=== PATIENT | male | born 1950 | race Caucasian/White ===

== ENCOUNTER 2018-07-29 15:39 | Inpatient (IN) | payer MEDICARE, OTHER, SELFPAY ==
[2018-07-29] VITALS (7 sets, daily range): BP systolic 119–161; BP diastolic 70–97; PULSE 64–87; RESP 14–20; TEMP 36.2–37.1; O2SAT 93–98; BMI 28.9; BMI 28.6
--- NOTE | 2018-07-29 | APP_PTH ---
PATIENT: KEIKO MICHEL LOC: MS2 U#:[id number] AGE/SX: 68/M ROOM: [id number] RE07/30/[address]: Dr. Aramis Gilbert MD : 1950 BED: 1 DIS: 07/31/2018 SPEC #: [id number] RECD: 07/30/18 12:17 STATUS: MARY RETammy #: [id number] BLAINE: 07/29/18 00:[address]: Aramis Gilbert DEPT: SURGICAL PATHOLOGY RECD BY: Yogi Salas ENTERED: 07/30/18 12:17 SP TYPE: APPENDIX OTHR DR: RODOLFO Da Silva Tissues: Appendix, NOS Procedures: Surgery Specimen Level III HEADER OPERATION: Laparoscopic appendectomy PRE-OP DIAGNOSIS: Acute appendicitis TISSUE SUBMITTED: Appendix MICROSCOPIC DIAGNOSIS Appendix: Acute ruptured appendicitis and periappendicitis. SJ:jamia 07/31/18 MICROSCOPIC DESCRIPTION Slides are reviewed. GROSS DESCRIPTION Received is one container labeled with the patient's name and designated appendix. The specimen consists of an appendix measuring 9.5 cm in length and up to 1 cm in diameter. 2 cm away from the proximal end, the appendix is disrupted most likely represents the site of perforation. The attached periappendiceal adipose tissue measures up to 2.5 cm in width. The mucosa is congested and hemorrhagic. The lumen contains hemorrhagic material. No fecalith is identified. 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 / ATA:jamia 07/30/18 TC:2 CPT: 90818
--- NOTE | 2018-07-29 15:59 | CT_ITS ---
STUDY: CT ABDOMEN AND PELVIS WITHOUT CONTRAST REASON FOR EXAM: Male, 68 years old. Lower abdominal pain RADIATION DOSAGE (If Supplied By Facility): CTDIvol = ( 13.75 ) mGy, DLP = ( 670.34 ) mGycm TECHNIQUE: Transaxial images were obtained from the dome of the diaphragm to the symphysis pubis without oral contrast, and without intravenous contrast. Sagittal and coronal images were reconstructed. Individualized dose optimization techniques were used for this CT. COMPARISON: None. FINDINGS: The visualized lung bases are unremarkable. The visualized portions of the heart are within normal limits. There is decreased attenuation of the liver consistent with steatosis. Normal gallbladder and extrahepatic biliary system. Normal spleen. Normal pancreas. Normal bilateral adrenal glands. Normal right kidney. Normal left kidney. Normal visualized stomach. Normal small intestine. Normal colon. There is a tubular, thick-walled appendix (>7mm), consistent with acute appendicitis. There is periappendiceal inflammation, findings best seen on coronal recon images 53 through 68. Normal abdominal aorta. Normal inferior vena cava. Normal retroperitoneum. Normal urinary bladder. Normal abdominal wall. Normal osseous structures. CT/Abdomen/Pelvis without Cont IMPRESSION: Abnormally thickened fluid-filled appendix with periappendiceal inflammation consistent with acute appendicitis. No perforation or abscess. Fatty liver Electronically Signed: David Mayo MD at 16:39 EDT , Service support ,
--- NOTE | 2018-07-29 16:00 | ED.VISSUMM ---
- ER Visit Summary Date of Service: 07/29/18 Chief Complaint: Abdominal pain History of Present Illness: The patient is a 68 M who goes to the [facility] and also sees Giovanni Burgos. Reports he has lower abdominal pain that began 3 days ago. Sick continuous aching pain that is 5 out of 10 at worst and through 10 currently. Is worsened by eating and relieved by remaining still. He has been nauseated and vomited once. No blood in his emesis. He reports his last bowel movement was 4-5 days ago. Typically goes 1-2 times per day. He denies any dysuria or frequency. He reports that he stopped taking psyllium approximately 2 weeks ago. Patient complains of subjective fever and chills. He denies any known history of diverticulosis. He reports that his last colonoscopy was approximately 3-5 years ago. Physical Examination: Vitals: Stable. Afebrile. General: Well-nourished and well-developed. Head: Normocephalic atraumatic. Neck: Supple, no lymphadenopathy. No JVD. Nontender. Cardiovascular: Regular rate and rhythm. No murmurs. Respiratory: No respiratory distress. Clear to auscultation bilaterally. Abdominal: Soft, mild tenderness palpation is diffuse over the lower abdomen, nondistended, normal bowel sounds. No guarding, rebound, or peritoneal signs. Back: Nontender. Extremities: Nontender, no edema. Skin: Normal color, no rash. Neurologic: Alert and oriented ?3. Cranial nerves II through XII are intact. Normal strength and sensation. Psych: Normal affect. Test Results: CBC is marked for a white count of 12.9, 7 neutrophils 71, lymphocytes 15, monocytes 14. Chem-7 is more for sodium [address] flank shows appendicitis without rupture or abscess. Emergency Department Course and Treatment: Patient had an IV placed. He was given a liter of normal saline. He is resting comfortably. He was given a dose of Zosyn IV. Treatment Plan: I discussed the patient his options of surgeon. I contacted Dr. Aramis Gilbert who will be in to see him. Disposition: Admitted in stable condition. Impression: 1. Appendicitis. This note was generated with [employer] dictation software. It may contain incorrect words, spelling, and punctuation that were not noted in review of the chart prior to signing ED Disposition - Plan for ED Patient: Chief Complaint: Abd Pain Referrals: Yinka Xiong PA [Primary Care Provider] -
[2018-07-29] MEDS: 0.9% Normal Saline 1,000 ML 1000 ML IV (16:14)
[2018-07-29 16:32] LABS: Anion Gap 9 (5-15); BUN 17 mg/dL (7-18); BUN/Creat Ratio 12.6 RATIO (10-20); Calcium,Total 8.5 mg/dL (8.5-10.1); Chloride 98 mmol/L (98-107); Creatinine, Serum 1.35 mg/dL (0.70-1.30); EST Glomerular Filtration Rate 56 mL/min (>60); Est Glom Filt Rate - Afr Amer 67 mL/min (>60); Estimated Creatinine Clearance 51.64 ml/min; Glucose 103 mg/dL (74-106); Potassium 3.6 mmol/L (3.5-5.1); Sodium Level 133 mmol/L (136-145)
[2018-07-29 16:33] LABS: Absolute Lymphocyte Count 1.97 X10^3/ul (0.83-4.51); Absolute Neutrophil Count 9.1 X10^3/uL (2.0-7.7); Basophil# 0.02 X10^3/uL; Basophil% 0.2 % (0-1); Eosinophil# 0.02 X10^3/uL; Eosinophils% 0.2 % (0-5); Hematocrit 45.8 % (40-54); Hemoglobin 15.8 g/dl (13.0-16.5); Lymphocyte # 1.97 X10^3/ul (4.0); Lymphocyte % 15.3 % (19-41); Mean Corp Hgb Conc 34.5 g/gl (32-36); Mean Corpuscular Hgb 31.2 pg (27.0-32.0); Mean Corpuscular Volume 90.5 fL (80-94); Monocyte# 1.76 X10^3/uL; Monocyte% 13.6 % (0-10); Neutrophil # 9.12 X10^3/uL (2.7-7.7); Neutrophil % 70.5 % (47-70); Platelet Count 159 K/mm3 (150-450); RBC Distribution Width CV 12.2 % (11.6-14.6); RBC Distribution Width SD 40.2 fl (35.1-43.9); Red Blood Count 5.06 M/mm3 (4.6-6.2); White Blood Count 12.9 K/mm3 (4.4-11.0)
[2018-07-29 16:35] LABS: Differential Indicated SCAN CRITERIA MET; POSITIVE COUNT NO; POSITIVE DIFFERENTIAL YES; POSITIVE MORPHOLOGY NO
[2018-07-29 16:59] LABS: Platelet Estimate A (ADEQ); Red Cell Morphology NORM C+C NORMAL (NORM C&C)
--- NOTE | 2018-07-29 17:12 | PCM.HP.STD ---
Problem List (1) Acute appendicitis Status: Acute Qualifiers: Acute appendicitis type: unspecified acute appendicitis type Qualified Code(s): K35.80 - Unspecified acute appendicitis (2) Chronic gastritis Status: Acute Qualifiers: Gastritis type: unspecified gastritis History of Present Illness Date of Admission: 07/29/18 The patient is a 68 year old M who presents to the emergency room with a 3-day history of abdominal pain. His symptoms started off with nausea vomiting and lower abdominal pain. He has not had a bowel movement for 4-5 days. He had a temperature up to 100. He states he was seen by urgent care yesterday and was told he had gastroenteritis. Because of worsening pain he presented to the emergency room. Laboratory demonstrates a white count of 12.9. CT scan was obtained demonstrating abnormal appendix with periappendiceal inflammation consistent with acute appendicitis. I have been consulted to assist with care with patient request Past Medical History Allergies No Known Allergies Allergy (Verified 07/29/18 15:41) Home Medications: Ambulatory Orders Medication Instructions Recorded Gerd Medication 07/29/18 Surgical History: arthroscopy, knee, tonsillectomy, - - History of esophagogastroduodenoscopy x3. History of colonoscopy x2. Smoking Status: Never smoker Alcohol: Occasional Review of Systems Constitutional: Reports: Anorexia, Chills, Fever, Night Sweats Eyes: Denies: Blurred vision HEENT: Denies: Difficulty Hearing Cardiovascular: Denies: Chest Pain, Claudication Respiratory: Denies: Cough Gastrointestinal: Reports: Abdominal Pain, Constipation, Nausea, Vomiting Genitourinary: Denies: Dysuria Skin: Denies: Dryness Neurological: Denies: Balance problems Endocrine: Denies: Change in Body Habitus VTE Information - Inpt Only VTE Present on Admission: No Patient Problems: Active and Suspected Problems Acute appendicitis (Acute) Chronic gastritis (Acute) - Physical Exam General: Alert, Oriented x3, Cooperative, No apparent distress HEENT: Atraumatic Oral: Moist Mucosa Neck: Supple Lungs: Clear to auscultation Cardiovascular: Regular rate, Regular Rhythm Abdomen: Bowel Sounds Present, - - Focally tender palpation right lower quadrant with guarding and rebound Extremities: No Calf Tenderness Skin: No rashes Neurological: Cranial nerves II-XII grossly intact Psych/Mental Status: Normal Affect Vital Signs Temp Pulse Resp BP Pulse Ox 98.7 F 79 16 161/85 H 96 07/29/18 15:43 07/29/18 17:03 07/29/18 17:03 07/29/18 17:03 07/29/18 17:03 Oxygen Delivery Method Room Air Weight: 195 lb 12.328 oz Body Mass Index (BMI) 28.9 Laboratory Tests Past 24 Hrs 07/29/18 07/29/18 16:10 16:10 WBC 12.9 H RBC 5.06 Hgb 15.8 Hct 45.8 MCV 90.5 MCH 31.2 MCHC 34.5 RDW 12.2 RDW Differential 40.2 Plt Count 159 MPV 10.0 Immature Gran % (Auto) 0.200 Neut % (Auto) 70.5 H Lymph % (Auto) 15.3 L Edmunds % (Auto) 13.6 H Eos % (Auto) 0.2 Baso % (Auto) 0.2 Absolute Neuts (auto) 9.1 H Absolute Lymphs (auto) 1.97 Total Counted Not Reportable Differential Comment Diff Path Review May foll Platelet Estimate A RBC Morphology NORM C+C Sodium 133 L Potassium 3.6 Chloride 98 Carbon Dioxide 26.0 Anion Gap 9 BUN 17 Creatinine 1.35 H Estim Creat Clear Calc 51.64 Est GFR (MDRD) Af Amer 67 Est GFR (MDRD) Non-Af 56 L BUN/Creatinine Ratio 12.6 Glucose 103 Calcium 8.5 Assessment/Plan All Active Problems Acute appendicitis (Acute) Chronic gastritis (Acute) The patient's presentation and clinical exam finding laboratory and imaging all consistent with 3-day progressive acute appendicitis. He has a significant amount of fat stranding on CT suggesting a more advanced process. I am offering him a laparoscopic appendectomy with possible conversion to an open approach if indicated. We will initiate him on IV Zosyn therapy. The patient complains of a 4-5-day history of constipation consistent with preoperative ileus. He is distended. He has had an opportunity to ask and have questions answered. We will proceed as or timing permits. Aramis Gilbert M.D., F.A.C.S.
--- NOTE | 2018-07-29 19:19 | DCINST_ITS ---
Discharge Diet: Light diet - advance as tolerated - if you have questions about your diet instructions, please talk to you doctor. Discharge Activity: May Not Drive - for 1 week or while taking narcotic pain medicine. May shower in (days): 1 Lifting Restrictions: 10 pounds Call your doctor if your incision/area has: Continuous Slow Oozing, Sudden Increased Bleeding, Increased Pain/ Swelling, Increased Redness, Foul Smelling Discharge Call your doctor if you observe: Fever of 101 or Higher Suture Line Care: Avoid Pulling/Pushing, Avoid Pinching/Bending Additional Dressing/Incision Instructions:: Change or remove dressing in 4 days. Leave steri-strips in place for 1 week. Allergies/Adverse Reactions: Allergies No Known Allergies Allergy (Verified 07/29/18 15:41) Medications to take at Discharge Ondansetron HCl [Zofran] 4 mg PO Q8H PRN PRN 07/29/18 Primary Care Physician: Yinka Xiong PA [Primary Care Provider] - Test Results: Test results from this visit will be discussed in further detail at your follow- up appointment, if applicable. Please Follow Up With: Aramis Gilbert MD - [phone] When: Call to make an appointment to be seen in about 10 days.
--- NOTE | 2018-07-29 19:19 | PCM.OPRPT ---
Problem List (1) Acute appendicitis Status: Acute Qualifiers: Acute appendicitis type: unspecified acute appendicitis type Qualified Code(s): K35.80 - Unspecified acute appendicitis (2) Chronic gastritis Status: Acute Qualifiers: Gastritis type: unspecified gastritis Report of Operation Date of Procedure: 07/29/18 Pre-Operative Diagnosis: Acute appendicitis with ileus Post-Operative Diagnosis: Acute gangrenous perforated appendicitis with ileus Surgery/Procedure Performed:: Laparoscopic appendectomy Description of Surgical Findings:: Timeout and informed consent was obtained. 68-year-old gent was taken the operative room. He was placed on the table. He underwent general endotracheal intubation anesthesia. Zosyn 4.5 g had been initiated therapeutic preoperatively the abdomen sterilely prepped and draped. 0.5% Marcaine was used as local anesthetic. Total 25 cc was used. A infraumbilical midline incision was created at the umbilicus sharp dissection carried down to Bey tissue holding sutures of 0 Vicryl placed varies needle inserted saline drop test performed the abdomen was insufflated with CO2 to a pressure of 10 mmHg pressure, trocar inserted 10 lap scope inserted over the joint trocar injuries under direct visitation five-minute ports were placed suprapubically in the low mid abdomen inspection revealed a densely adherent appendix in the right lower quadrant with partial retrocecal component. The lap scopic appendectomy was technically extraordinarily challenging due to the absolute dense adherence of the appendix to the retroperitoneum. I attempted to elevate the appendix was not successful I had to incise the peritoneum along the lateral aspect of the cecum to get retrocecal to assist with elevation. Were needed hemostasis obtained with Hem-o-kenya clips. Blunt dissection was performed. Finally the origin of the appendix with the cecum could be identified and a 45 mm standard height stapler was used to transect the appendix flush with the cecum. Hemoclips were additionally used to secure the mesoappendix. The appendix was it is of note that during the initial part of this dissection there was evidence of gangrenous change of the appendix with purulent discharge as soon as the appendix was freed from a portion of the retroperitoneum this material was aspirated and sent for stat Gram stain culture and sensitivity. Eventually the appendix could completely be free from the mesoappendix was placed in retrieval bag. The inflammatory phlegmon pocket was carefully irrigated and aspirated free. Hemostasis was intact. The staple line was intact. The appendix was placed in a retrieval bag. A 15 round DAVID drain was placed to the pelvis into the periappendiceal area. It was connected to the skin with interrupted 3-0 nylon. Was connected to closed bulb suction. The appendix was removed at the umbilicus both fascia and skin enlargement was required due to the amount of inflammatory reaction. The abdomen was then allowed to deflate of the CO2. The fascial defect was approximated with interrupted 0 Vicryl figure 8 suture. Skin edges proximate up to 4 Monocryl subdermal stitches. Steri-Strips Telfa and OpSite dressings applied. Sponge and instrument and needle counts were reported the surgeon be correct. Blood loss was minimal. Specimens include the appendix. Drains 15 round DAVID. Blood loss minimal. He will be admitted for ongoing care of his perforated appendicitis with preoperative ileus. Aramis Gilbert M.D., F.A.C.S. Anesthesiologist: Mango Leos
[2018-07-29] MEDS: Lactated Ringers 1,000 ML 70 ML IV (21:08)
[2018-07-29] MEDS: Morphine 2 MG/ML Syringe IV (21:08)
[2018-07-29] MEDS: Piperacil/Tazobactam 3.375 GM/50 ML ML IV (22:07)
[2018-07-30] MEDS: Acetaminophen 325 MG Tablet 650 MG PO (00:16)
[2018-07-30 00:24] VITALS: BMI 28.6
[2018-07-30 00:25] VITALS: BP 111/54; PULSE 90; RESP 18; TEMP 37.9; O2SAT 92
[2018-07-30 04:00] VITALS: BP 111/53; PULSE 90; RESP 18; TEMP 36.4; O2SAT 92
[2018-07-30] MEDS: Piperacil/Tazobactam 3.375 GM/50 ML ML IV ×3 (05:42→22:33)
--- NOTE | 2018-07-30 05:47 | PN.SURG_ITS ---
Subjective: Pt comfortable No flatus, no nausea - Physical Exam Abdomen: Soft, Bowel Sounds Not Present, Distended - DAVID sersosanguinous and small amount Vital Signs Temp Pulse Resp BP Pulse Ox 97.6 F L 90 18 111/53 L 92 07/30/18 04:00 07/30/18 04:00 07/30/18 04:00 07/30/18 04:00 07/30/18 04:00 Oxygen Delivery Method Room Air Weight: 194 lb Body Mass Index (BMI) 28.6 Intake and Output for Last 24 Hours 07/28/18 07/29/18 07/30/18 23:59 23:59 23:59 Intake Total 328 / 328 498 / 498 Output Total 55 / 55 125 / 125 Balance 273 / 273 373 / 373 Laboratory Tests Past 24 Hrs 07/29/18 07/29/18 16:10 16:10 WBC 12.9 H RBC 5.06 Hgb 15.8 Hct 45.8 MCV 90.5 MCH 31.2 MCHC 34.5 RDW 12.2 RDW Differential 40.2 Plt Count 159 MPV 10.0 Immature Gran % (Auto) 0.200 Neut % (Auto) 70.5 H Lymph % (Auto) 15.3 L Crowley % (Auto) 13.6 H Eos % (Auto) 0.2 Baso % (Auto) 0.2 Absolute Neuts (auto) 9.1 H Absolute Lymphs (auto) 1.97 Total Counted Not Reportable Differential Comment Diff Path Review May foll Platelet Estimate A RBC Morphology NORM C+C Sodium 133 L Potassium 3.6 Chloride 98 Carbon Dioxide 26.0 Anion Gap 9 BUN 17 Creatinine 1.35 H Estim Creat Clear Calc 51.64 Est GFR (MDRD) Af Amer 67 Est GFR (MDRD) Non-Af 56 L BUN/Creatinine Ratio 12.6 Glucose 103 Calcium 8.5 Medical Necessity - Tobacco Use Smoking Status: Never smoker Assessment/Plan All Active Problems Acute appendicitis (Acute) Chronic gastritis (Acute) Check labs Pt needs to mobilize. Preop ileus persists Will hold on clears until recheck later today
[2018-07-30 06:34] LABS: Absolute Lymphocyte Count 1.61 X10^3/ul (0.83-4.51); Absolute Neutrophil Count 8.6 X10^3/uL (2.0-7.7); Basophil# 0.02 X10^3/uL; Basophil% 0.2 % (0-1); Hematocrit 42.4 % (40-54); Hemoglobin 14.5 g/dl (13.0-16.5); Lymphocyte # 1.61 X10^3/ul (4.0); Lymphocyte % 13.8 % (19-41); Mean Corp Hgb Conc 34.2 g/gl (32-36); Mean Corpuscular Volume 90.6 fL (80-94); Mean Platelet Vol. 10.9 fl (6.2-12.0); Monocyte# 1.43 X10^3/uL; Monocyte% 12.3 % (0-10); Neutrophil # 8.57 X10^3/uL (2.7-7.7); Neutrophil % 73.6 % (47-70); Platelet Count 172 K/mm3 (150-450); RBC Distribution Width CV 12.1 % (11.6-14.6); RBC Distribution Width SD 39.8 fl (35.1-43.9); Red Blood Count 4.68 M/mm3 (4.6-6.2); White Blood Count 11.6 K/mm3 (4.4-11.0)
[2018-07-30 06:37] LABS: POSITIVE COUNT NO; POSITIVE DIFFERENTIAL NO; POSITIVE MORPHOLOGY NO
[2018-07-30 08:00] VITALS: BP 115/75; PULSE 80; RESP 18; TEMP 36.7; O2SAT 97
[2018-07-30] MEDS: Enoxaparin 40 MG/0.4 ML Syringe SC (11:11)
[2018-07-30] MEDS: Lactated Ringers 1,000 ML 70 ML IV (11:11)
[2018-07-30] MEDS: 0.9% NaCl Peripheral Flush Adult/Peds IV (12:24)
[2018-07-30] MEDS: Ondansetron 4 MG/2 ML Vial IV (12:24)
--- NOTE | 2018-07-30 13:00 | CASEMGMT ---
KIMBERLY PANDYA INITIAL REVIEW ASSESSMENT D/C PLAN: Face to Face with patient for initial transition planning/care coordination assessment. KIMBERLY PANDYA introduced self and role at [facility]. Care providers, pharmacy, and demographics verified. PCP: RODOLFO Bright. States has only seen him x 1 d/t was wanting to get set up w/PCP. Otherwise goes to [facility] in [place]--sees Dr Gomes there and nurse is Zac. States he goes to Dr Gomes 2 x's/year. *Call placed to [facility] in [place] @ [phone]. Pt is on Team 3 @ [facility]. KIMBERLY Frank, for Dr Gomes. (Extenstion [id number]). Zac notified that pt is @ [facility]. Zac asked for d/c instructions to be faxed to him @ [phone] when pt is discharged. Zac also states that pt has an appt with Dr Gomes on August 04 @ 0459. Pt states he is aware of this, but states he is supposed to have labs drawn prior to that appt and is not sure what labs he needs. Call placed back to Zac to inquire what labs were needed. Awaiting response. Pt also states he does not remember all of the medication he takes. Asked for medication list to be faxed to KIMBERLY PANDYA from [facility]. Awaiting response. Preferred Pharmacy: [facility] [place]. States if they do not have the medication available or if he needs a prescription right away, he goes to [facility] in [place]. Pt will need a printed Script [facility]. Insurance: [facility] A [facility], [employer] Prescription Benefit: [facility] prescription coverage if gets at [facility] Living Will/HPOA: States does not have LW or HPOA but would like some more information on it and would like to talk to about it. consult made with Nehal CONLEY: Manda Bricenok, sister Living Arrangements: Lives alone in a one-story home. States there are no steps to enter. Pt states is independent with all ADL's. States his sister is able to help him if needed. Transportation: Pt still drives. Sister able to help. DME: Has rails/grab bars, othewise, denies using any DME and denies needs. HHC/SNF: Pt states has never used HHC or been to a SNF and denies needs for either. Pt's plans on D/C: Wishes to return home. CM to follow for any further discharge planning needs that may arise. Zofia MOJICAN RN CM
--- NOTE | 2018-07-30 13:26 | CASEMGMT ---
SW received referral from for [employer] Direct[employer]. SW met w/pt, he did not want to complete the forms at present but did want to review them. SW reviewed the forms w/the pt and gave him the number for the SW to department to call, should he want to complete them after discharge. SW explained to pt that if he would like to complete them after discharge to call and a SW would be able to make an appointment to assist pt in completing the forms. PERLA Powell, SPACE ENGINEER
--- NOTE | 2018-07-30 13:30 | CASEMGMT ---
KIMBERLY PANDYA NOTE: Reviewed [place] Declination of Transfer form. Pt declines tranfer to a [facility] and signed form. Copy of form given to pt and original placed on chart. Form faxed to [facility] @ [phone] along with H/P and demographic sheet. Fax confirmation received that faxes was delivered. Zofia MAJANO RN CM
[2018-07-30 13:43] LABS: Pathologist Review Reviewed
[2018-07-30 13:49] VITALS: BP 125/78; PULSE 84; RESP 18; TEMP 37.2; O2SAT 97
--- NOTE | 2018-07-30 16:59 | CHAPLAIN ---
Type of Pastoral Visit _x__ Initial Visit ___ Follow-up Visit ___ On-call Visit ___ General Patient Visit ___ Spiritual Assessment ___ Family Conference ___ Bereavement ___ Rapid Response ___ Code Blue ___ Other (describe below) Pastoral Care Referral From _x__ Patient ___ Family ___ Nurse ___ Physician ___ Remote Medical Coder ___ Transition Program Manager ___ Other (describe below) Sacrament/Intervention _x__ Active listening ___ Anointing ___ Yazdanism ___ Bereavement ___ Communion _x__ Lesli exploration ___ ___ Life review _x__ Prayer ___ Reconciliation ___ Sacrament of Sick _x__ Supportive presence ___ Wedding ___ Other (describe below) Pastoral Comments 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
[2018-07-30 20:23] VITALS: BP 137/79; PULSE 89; RESP 18; TEMP 36.9; O2SAT 96
[2018-07-31] MEDS: Lactated Ringers 1,000 ML 70 ML IV (01:04)
[2018-07-31 01:44] VITALS: BP 122/69; PULSE 89; RESP 16; TEMP 36.8; O2SAT 93
[2018-07-31] MEDS: Acetaminophen 325 MG Tablet 650 MG PO (04:57)
--- NOTE | 2018-07-31 05:19 | NURSING ---
Dr. Gilbert in & pulled patient's DAVID drain at bedside.
--- NOTE | 2018-07-31 05:25 | PN.SURG_ITS ---
Subjective: Flatus, no stool, no nausea - Physical Exam Lungs: Clear to auscultation Abdomen: Bowel Sounds Present, Soft Vital Signs Temp Pulse Resp BP Pulse Ox 98.2 F 89 16 122/69 H 93 07/31/18 01:44 07/31/18 01:44 07/31/18 01:44 07/31/18 01:44 07/31/18 01:44 Oxygen Delivery Method Room Air Weight: 194 lb 0.003 oz Body Mass Index (BMI) 28.6 Intake and Output for Last 24 Hours 07/29/18 07/30/18 07/31/18 23:59 23:59 23:59 Intake Total 328 / 328 2096.9 / 2096.9 Output Total 55 / 55 165 / 165 Balance 273 / 273 1931.9 / 1931.9 Microbiology Past 72 Hours 07/29/18 18:25 Gram Stain - Final Abs - Abdominal Wound Culture - Preliminary Laboratory Tests Past 24 Hrs 07/29/18 07/30/18 16:10 05:50 WBC 11.6 H RBC 4.68 Hgb 14.5 Hct 42.4 MCV 90.6 MCH 31.0 MCHC 34.2 RDW 12.1 RDW Differential 39.8 Plt Count 172 MPV 10.9 Immature Gran % (Auto) 0.100 Neut % (Auto) 73.6 H Lymph % (Auto) 13.8 L [place] % (Auto) 12.3 H Eos % (Auto) 0.0 Baso % (Auto) 0.2 Absolute Neuts (auto) 8.6 H Absolute Lymphs (auto) 1.61 Total Counted Not Reportable Diff Path Review Reviewed Medical Necessity - Tobacco Use Smoking Status: Never smoker Assessment/Plan All Active Problems Acute appendicitis (Acute) Chronic gastritis (Acute) DAVID removed Await cultures Planned discharge later today
[2018-07-31 05:41] LABS: Absolute Lymphocyte Count 1.63 X10^3/ul (0.83-4.51); Absolute Neutrophil Count 4.6 X10^3/uL (2.0-7.7); Basophil# 0.02 X10^3/uL; Basophil% 0.3 % (0-1); Eosinophil# 0.08 X10^3/uL; Eosinophils% 1.1 % (0-5); Hematocrit 36.8 % (40-54); Hemoglobin 12.7 g/dl (13.0-16.5); Lymphocyte # 1.63 X10^3/ul (4.0); Lymphocyte % 22.3 % (19-41); Mean Corp Hgb Conc 34.5 g/gl (32-36); Mean Corpuscular Hgb 31.2 pg (27.0-32.0); Mean Corpuscular Volume 90.4 fL (80-94); Mean Platelet Vol. 10.1 fl (6.2-12.0); Monocyte# 0.97 X10^3/uL; Monocyte% 13.3 % (0-10); Neutrophil % 62.7 % (47-70); Platelet Count 157 K/mm3 (150-450); RBC Distribution Width CV 11.7 % (11.6-14.6); RBC Distribution Width SD 38.2 fl (35.1-43.9); Red Blood Count 4.07 M/mm3 (4.6-6.2); White Blood Count 7.3 K/mm3 (4.4-11.0)
[2018-07-31] MEDS: Polyethylene Glycol 3350 17 GM PACKET 34 GM PO (05:42)
[2018-07-31] MEDS: Piperacil/Tazobactam 3.375 GM/50 ML ML IV ×2 (05:43→14:07)
[2018-07-31] MEDS: Bisacodyl 5 MG Tablet 10 MG PO (05:44)
[2018-07-31] MEDS: Enoxaparin 40 MG/0.4 ML Syringe SC (05:44)
[2018-07-31 05:45] LABS: POSITIVE COUNT NO; POSITIVE DIFFERENTIAL NO; POSITIVE MORPHOLOGY NO
[2018-07-31 06:10] LABS: Anion Gap 10 (5-15); BUN 17 mg/dL (7-18); BUN/Creat Ratio 15.2 RATIO (10-20); Calcium,Total 7.7 mg/dL (8.5-10.1); Chloride 102 mmol/L (98-107); Creatinine, Serum 1.12 mg/dL (0.70-1.30); EST Glomerular Filtration Rate 69 mL/min (>60); Est Glom Filt Rate - Afr Amer 84 mL/min (>60); Estimated Creatinine Clearance 62.25 ml/min; Glucose 87 mg/dL (74-106); Potassium 3.6 mmol/L (3.5-5.1); Sodium Level 138 mmol/L (136-145)
[2018-07-31 07:55] VITALS: BP 131/82; PULSE 85; RESP 18; TEMP 36.6; O2SAT 97
--- NOTE | 2018-07-31 11:15 | CASEMGMT ---
KIMBERLY PANDYA NOTE: *Goff check done on Jackson and Augmention @ [facility] and [facility] d/t pt gets his prescriptions thru [facility] and does not have other Prescription coverage and Clinic may be closed by time pt is discharged. Total cost of both meds @ [facility] is $26.62. Total cost of meds @ [facility] $31.78. Pt states prefers to get these meds from [facility]. Call placed to [facility] to have e-scripts transferred to them per pt request. Unable to transfer e-script for Jackson. Pt states would like to get Augmentin from [facility] and will go to [facility] for the Jackson. *Pt voiced concerns about upcoming appt w/Dr Gomes @ [facility] d/t he was to have labs drawn prior to the appt and he states he will not be able to have done before the appt. Call placed to KIMBERLY Frank, @ [facility]. Zac stated he should still keep his appt with Dr Gomes and they would discuss when pt could have his labs drawn. Pt made aware. Faxed labwork completed @ [facility] to [facility] per pt request so those do not have to be repeated. *D/C Instructions and summary faxed to [facility]. CM to follow for any further discharge planning needs that may arise. Zofia MAJANO RN, CM
[2018-07-31 14:00] VITALS: BP 138/84; PULSE 76; RESP 16; TEMP 36.7; O2SAT 97
[2018-07-31] MEDS: Magnesium Citrate 300 ML 150 ML PO (14:05)
== END 2018-07-31 16:44 | disposition home or self-care (01) | DRG 339 ==
LOC: ED 17:14 → SDC 19:58 → MS2 20:02 → SDC 07-30 10:46
PROVIDERS: Physician Assistant; Admitting Provider Surgery; Emergency Provider Emergency Medicine; Family Provider Physician Assistant; PCP Physician Assistant; Visit Provider Surgery
PROC: 0DTJ4ZZ Resection of Appendix, Percutaneous Endoscopic Approach (ICD-10-PCS; CPT 44970; principal; 2018-07-29 17:45)
DX: K35.32 Acute appendicitis with perforation, localized peritonitis, and gangrene, without abscess (principal); K56.7 Ileus, unspecified; K29.50 Unspecified chronic gastritis without bleeding; Z23 Encounter for immunization
CPT/HCPCS: 36415; 74176; 80048; 85025; 87070; 87075; 87076; 87077; 87186; 87205; 88304; 97802; 99284; J7030; J7120; 90686; A4216; J2405

== ENCOUNTER 2018-11-06 05:24 | Day surgery (SDC) | payer MEDICARE, OTHER, SELFPAY ==
[2018-09-10 10:13] VITALS: BMI 28.8
[2018-11-06] VITALS (10 sets, daily range): BP systolic 105–141; BP diastolic 69–92; PULSE 77–86; RESP 16–18; TEMP 36.4–37.1; O2SAT 91–100; BMI 28.8
--- NOTE | 2018-11-06 06:09 | PCM.HP.STD ---
Problem List (1) Change in bowel habits Status: Acute History of Present Illness Date of Admission: 11/06/18 The patient is a 68 year old M who has had a change of bowel habits. July 29, 2018 I had performed a laparoscopic appendectomy on him for perforated appendicitis. He had a postoperative ileus. Recently however he has had progressive severe constipation. His most recent colonoscopy was approximately 6 years ago. He has not noticed any bright red blood per rectum or melena. There is no family history of colon polyps or colon cancer. He has not had any signs of continued postoperative infection Past Medical History Medical History: Medical History (Last Updated 09/10/18 @ 10:13 by Mel Singleton) Change in bowel habits (Acute) R19.4 Acute appendicitis (Acute) K35.80 Chronic gastritis (Acute) K29.50 Constipation K59.00 Allergies No Known Allergies Allergy (Verified 09/10/18 10:13) Home Medications: Ambulatory Orders Medication Instructions Recorded Loratadine [Claritin] 10 mg PO DAILY 07/29/18 Psyllium Husk 07/29/18 Aspirin/Caffeine [Bc Powder Packet] 1 ea PO DAILY PRN 07/31/18 Cholecalciferol (VIT D3) [Vitamin 2,000 unit PO BID 07/31/18 D] Cyanocobalamin (Vitamin B-12) 1,000 mcg PO DAILY 07/31/18 [B-12] Fluticasone 0.05% [Flonase Nasal 2 spray NASAL DAILY 07/31/18 [place]] Ibuprofen 400 mg PO Q8H PRN 07/31/18 Ranitidine [Zantac] 300 mg PO BID 07/31/18 Amoxicillin/Potassium Clav 1 tab PO BID 11/06/18 [Augmentin 875-125 Tablet] Surgical History: Surgical History (Last Reviewed 09/10/18 @ 10:12 by Mel Singleton) Status post laparoscopic appendectomy Onset Date: ~07/30/18 Z90.49 Surgical History: arthroscopy, knee, tonsillectomy, - - History of esophagogastroduodenoscopy x3. History of colonoscopy x2. Smoking Status: Never smoker Review of Systems Constitutional: Denies: Anorexia HEENT: Denies: Difficulty Swallowing Cardiovascular: Denies: Chest Pain Respiratory: Denies: Cough Gastrointestinal: Denies: Abdominal Pain Endocrine: Denies: Change in Body Habitus VTE Information - Inpt Only VTE Present on Admission: No - Physical Exam General: Alert, Oriented x3, Cooperative, No apparent distress Oral: Moist Mucosa Neck: Supple Lungs: Clear to auscultation Cardiovascular: Regular rate, Regular Rhythm Abdomen: Bowel Sounds Present, Soft, Non Tender Extremities: No Calf Tenderness Psych/Mental Status: Normal Affect Vital Signs Temp Pulse Resp BP Pulse Ox 97.8 F 86 16 137/86 H 97 11/06/18 05:57 11/06/18 05:57 11/06/18 05:57 11/06/18 05:57 11/06/18 05:57 Oxygen Delivery Method Room Air Weight: 195 lb 0.004 oz Body Mass Index (BMI) 28.8 Assessment/Plan All Active Problems (Last Updated 09/10/18 @ 10:13 by Mel Singleton) Change in bowel habits (Acute) Abscess (Acute) Acute appendicitis (Acute) Chronic gastritis (Acute) I have recommended the patient a colonoscopy with possible biopsy or polypectomy as indicated. He is aware of the technique, benefits, risks, alternatives. If no source for constipation is identified then he will receive recommendations for routine bowel regimen. Progress and prognosis are felt to be good. Aramis Gilbert M.D., F.A.C.S.
--- NOTE | 2018-11-06 06:30 | COLBX_PTH ---
PATIENT: KEIKO MICHEL LOC: EN U#:[id number] AGE/SX: 68/M ROOM: RE11/06/[address]: Dr. Aramis Gilbert MD : 1950 BED: DIS: 11/06/2018 SPEC #: [id number] RECD: 11/06/18 10:58 STATUS: MARY PATRIA #: [id number] BLAINE: 11/06/18 06:[address]: Aramis Gilbert DEPT: SURGICAL PATHOLOGY RECD BY: Marcin Stovall ENTERED: 11/06/18 11:28 SP TYPE: COLON BX OTHR DR: RODOLFO Da Silva Tissues: Sigmoid colon biopsy Procedures: Surgery Specimen Level IV HEADER OPERATION: Colonoscopy (MOD) PRE-OP DIAGNOSIS: Screening colonoscopy TISSUE SUBMITTED: Polyp at proximal sigmoid MICROSCOPIC DIAGNOSIS Proximal sigmoid polyp: Tubular adenoma. CE:jamia 11/09/18 MICROSCOPIC DESCRIPTION Slides are reviewed. GROSS DESCRIPTION Received in fixative is one container labeled with the patient's name and designated proximal sigmoid polyp. The specimen consists of multiple irregular fragments of light chan soft tissue that in aggregate measure 0.3 x 0.3 x 0.1 cm. The specimen is totally submitted in one cassette. / AM:jamia 11/06/18 TC:1 CPT: 57023
--- NOTE | 2018-11-06 06:56 | OP.ENDO_ITS ---
Patient Name: Miguel Brothers Procedure Date: 11/06/2018 6:04 AM Date of : 1950 Age: 68 Procedure: Colonoscopy Indications: Constipation Providers: Aramis Gilbert MD Referring MD: Aramis Gilbert MD Medicines: Midazolam 3 mg IV, Meperidine 100 mg IV Patient Profile: Last Colonoscopy: 6 years ago. Complications: No immediate complications. Procedure: Pre-Anesthesia Assessment: - Prior to the procedure, a History and Physical was performed, and patient medications and allergies were reviewed. The patient's tolerance of previous anesthesia was also reviewed. The risks and benefits of the procedure and the sedation options and risks were discussed with the patient. All questions were answered, and informed consent was obtained. Prior Anticoagulants: The patient has taken no previous anticoagulant or antiplatelet agents. ASA Grade Assessment: II - A patient with mild systemic disease. After reviewing the risks and benefits, the patient was deemed in satisfactory condition to undergo the procedure. After I obtained informed consent, the scope was passed under direct vision. Throughout the procedure, the patient's blood pressure, pulse, and oxygen saturations were monitored continuously. The pediatric colonoscope was introduced through the anus and advanced to the cecum, identified by appendiceal orifice and ileocecal valve. The colonoscopy was performed without difficulty. The patient tolerated the procedure well. The quality of the bowel preparation was good. The ileocecal valve was photographed. Moderate Sedation: Moderate (conscious) sedation was personally administered by the endoscopist. The following parameters were monitored: oxygen saturation, heart rate, blood pressure, and response to care. Total physician intraservice time was 18 minutes. Scope In: 6:34:07 AM Scope Withdrawal Time 0 hours 11 minutes 41 seconds Scope Out: 6:50:32 AM Total Procedure Duration Time 0 hours 16 minutes 25 seconds Findings: The digital rectal exam findings include non-thrombosed external hemorrhoids, non-thrombosed internal hemorrhoids, internal hemorrhoids that prolapse with straining, but spontaneously regress to the resting position (Grade II) and enlarged prostate. A 6 mm polyp was found in the proximal sigmoid colon. The polyp was sessile. The polyp was removed with a hot snare. Resection and retrieval were complete. Multiple diverticula were found in the sigmoid colon. Impression: - Non-thrombosed external hemorrhoids, non-thrombosed internal hemorrhoids, internal hemorrhoids that prolapse with straining, but spontaneously regress to the resting position (Grade II) and enlarged prostate found on digital rectal exam. - One 6 mm polyp in the proximal sigmoid colon, removed with a hot snare. Resected and retrieved. - Diverticulosis in the sigmoid colon. Recommendation: - Discharge patient to home. - Resume previous diet. - Continue present medications. - Repeat colonoscopy in 5 years for surveillance. - Telephone my office for pathology results in 1 week. Procedure Code(s): --- Professional --- 14197, Colonoscopy, flexible; with removal of tumor(s), polyp(s), or other lesion(s) by snare technique 90635, 59, Moderate sedation services provided by the same physician or other qualified health director of career services performing the diagnostic or therapeutic service that the sedation supports, requiring the presence of an independent trained observer to assist in the monitoring of the patient's level of consciousness and physiological status; initial 15 minutes of intraservice time, patient age 5 years or older Diagnosis Code(s): --- Professional --- D12.5, Benign neoplasm of sigmoid colon K64.1, Second degree hemorrhoids K64.4, Residual hemorrhoidal skin tags K59.00, Constipation, unspecified N40.0, Benign prostatic hyperplasia without lower urinary tract symptoms K57.30, Diverticulosis of large intestine without perforation or abscess without bleeding CPT copyright 2017 [employer]. All rights reserved. The codes documented in this report are preliminary and upon medical record coder review may be revised to meet current compliance requirements. Aramis Gilbert MD 11/06/2018 6:56:16 AM This report has been signed electronically. Number of Addenda: 0 Note Initiated On: 11/06/2018 6:04 AM
== END 2018-11-06 08:01 | disposition home or self-care (01) ==
LOC: EN 05:27 → AC 05:28
PROVIDERS: Family Provider Physician Assistant; PCP Physician Assistant; Referring Provider Surgery; Visit Provider Surgery
PROC: 0DJD8ZZ Inspection of Lower Intestinal Tract, Via Natural or Artificial Opening Endoscopic (ICD-10-PCS; CPT 45378; principal; 2018-11-06 06:25)
DX: D12.5 Benign neoplasm of sigmoid colon (principal); K64.1 Second degree hemorrhoids; K64.4 Residual hemorrhoidal skin tags; K59.00 Constipation, unspecified; N40.0 Benign prostatic hyperplasia without lower urinary tract symptoms; K57.30 Diverticulosis of large intestine without perforation or abscess without bleeding
CPT/HCPCS: 45385; 88305; 99152; 99153; J7120

== ENCOUNTER → 2022-02-27 | Outpatient (CLI) | payer MEDICARE, OTHER, SELFPAY ==
--- NOTE | 2022-02-27 16:12 | STRESSREP ---
Stress Test Report Pharmacologic myocardial perfusion stress test. 71-year-old man with a history of chest pain. Stress protocol: Resting EKG demonstrates normal sinus rhythm with a rate of 62 bpm normal intervals are noted resting blood pressure is 132/90 mmHg. 0.4 mg of regadenoson was infused per usual protocol followed by Intravenous saline flush injection continuous EKG monitoring was performed. The patient maintained sinus rhythm throughout the recording. The maximum heart rate attained was 100 bpm which was 67% of max impact at heart rate the maximum workload was 1 metabolic equivalent. At rest there were no ST or T wave changes noted to suggest abnormal flow reserve and at peak infusion nonspecific ST changes were noted with did not meet the criteria for ischemia. No clinical angina was noted. Myocardial perfusion protocol. 14.4 mCi of technetium 99m sestamibi was injected at rest. 0.4 mg of regadenoson was infused per usual protocol. At peak infusion 44.3 mCi of technetium 99m sestamibi was injected stress images were obtained stress and rest images were reconstructed and compared in the short axis vertical long and horizontal long axis. Gated images were also obtained. Perfusion SPECT analysis: Review of the stress images demonstrate normal uptake of tracer noted in all areas of the myocardium. The resting images similar demonstrate normal uptake of tracer noted in all areas of the myocardium. No previous infarct is noted and no reversibility is noted to suggest ischemia. Gated SPECT analysis: The gated ejection fraction is 52%. Conclusion: Normal pharmacologic myocardial perfusion stress test. Preserved ejection fraction.
== END | disposition home or self-care (01) ==
PROVIDERS: PCP Family Medicine; Referring Provider Family Medicine; Visit Provider Family Medicine
DX: Z01.818 Encounter for other preprocedural examination (principal); R94.31 Abnormal electrocardiogram [ECG] [EKG]
CPT/HCPCS: 78452; 93017; A9500; A4216; J2785

== ENCOUNTER 2022-06-13 11:00 | Outpatient (RCR) | payer MEDICARE, OTHER, SELFPAY ==
--- NOTE | 2022-04-22 12:09 | HP.PTEVAL ---
Patient's Visit Information KEIKO MICHEL is a 71 year old M referred to Physical Therapy by Dr. Arthur Marcos MD with a diagnosis of S/P RIGHT TKR, GAIT ABNORMALITY. Date of Evaluation: 04/22/22 Physical Therapist: Mani Okeefe, PT, Cert MDT, OCS - Visit Plan Frequency: 2x /Week Duration: 4 Weeks Plan: PT INTEVENTIONS ROM FOCUSING ON FLEXION ,STRENGTH QUADS/HAMS ,FLEXABLITY ,FUNCTIONAL STRENGTHNEING ,GAIT / BALANCE AND NUSTEP /BIKE,CP - Subjective This 71 y/o female presents to physical therapy with right TKR done by DR Marcos at [facility] on March 21 2022 . Patient d/c April 04 to home . Patient had prior PT ~ 3 weeks. 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 No prior PT. Patient had clue for incision. Patient has no pain just very stiff and and has good extension lacking bending. Denies paresthesia/tingling. Patient lives in 1st floor home with no steps. Bathroom set up tub/shower and grab bars. Currently staying with sister. Patient has difficulty with ADL's ,and housework tasks . Patient has some difficulty with sleeping. MEDS oxycodone. Patient goals walk normal and be I at my home. Sister does cooking and cleaning,. SOCAIL: single. VOCATION: [employer] - Pain Right Knee Pain Intensity (Out of 10): 2 Pain Intensity Range: 10 - Objective POSTURE: mild forward posture. GAIT: ambulates with cane 2 points with decrease swing phase. NEURO: denies paresthesia/tingling. SKIN: incision well approximate clue. GIRTH PATELLA: 41.5 cm. GIRTH 6 SUPRAPATELLA: 29.9. MMT ( peak force): quads 29.9, hamstrings 29.9,hip flexion 24.6 ,ankle 4/5. BALANCE: good - with cane. AAROM: 2-95 degrees supine flexion right. STAIRS: one step at a time with cane rail I - Balance/Special Test Scores Lower Extremity Functional Score: 18 TUG Test Time Seconds: 19.6 WOMAC Total Score: 32 WOMAC Percentatge: 66.6700 - Goals Goal 1:: Patient to be I with HEP for Right TKR. Goal Time Frame: 4-6 Weeks Goal 2:: Patient to normalize gait community distance and tug score under 10 Goal Time Frame: 4-6 Weeks Goal 3:: Patient to improve peak force of quads /hams by 10 t improve gait Goal Time Frame: 4-6 Weeks Goal 4:: Patient to improve WOMAC by 10 points Goal Time Frame: 4-6 Weeks Goal 5:: Patient to improve AROM 0-110 degrees supine knee flexion to ascend stairs alteranting Goal Time Frame: 4-6 Weeks Goal 6:: Patient to improve LFES score by 10 points to improve QOL - Rehabilitation Potential Physical Therapy Diagnosis: This patient underwent s/p right TKR with decrease ROM especially flexion ,strength ,gait ,stairs thus benefit from skilled PT Rehabilitation Potential: Good - Anticipated Interventions Patient/Client Instruction: Educate patient on: Condition, Plan of Care For the Purpose of:: To decrease pain, To increase ROM, To improve muscle performance and motor function, To improve ability to perform ADL's, To increase tolerance to activity/condition/position, To improve performance and independence with ADL's, To improve ability of physical actions for home/community/work/leisure, To improve gait and locomotor functions, To improve health of tissue, To decrease soft tissue restriction, To increase flexibility/ROM, To improve balance, To prevent re-injury Therapeutic Exercise to Include: Strength training, Endurance training, Balance training, Flexibilty training, Gait and locomotor training, Passive ROM, Active ROM Comment: STRENGTHENING QUADS/HAMS For the Purpose of:: To decrease pain, To increase ROM, To improve muscle performance and motor function, To improve ability to perform ADL's, To increase tolerance to activity/condition/position, To improve gait and locomotor functions, To improve health of tissue, To decrease soft tissue restriction, To increase flexibility/ROM, To improve endurance, To improve balance Thank you for the opportunity to evaluate your patient. For Medicare and Medicare HMO plans, please review the plan of care and approve it. It will need to be FAXED BACK to us at [phone] for Medicare purposes. For Medicare only, by signing this I certify the plan of care. Please let me know if there are questions or concerns regarding this plan of care. Physician Signature: Date:
--- NOTE | 2022-05-22 15:13 | HP.PTREVAL ---
Dr. Arthur Marcos MD, It has been my pleasure to treat KEIKO MICHEL over the last 8 visits for S/P RIGHT TKR, GAIT ABNORMALITY (03/21/22).. Please see the progress note below for an update on the physical therapy plan of care! Subjective: Pt, reports being 85-90% better overall. HE reports being conserned about if he is progressing as expected. Objective/Function: ROM: AROM: 0-0-110deg, PROM 0-0-115deg. TU.8sec. MMT: R knee: flexion 37.2#, ext 39.4#. LLE: flexion 41.5#, extension 44.3#. GAIT: Pt. has decent gait pattern. Slight lack of TKE during stance phase, but the rest of his pattern is normal. STAIRS: Pt. is able to ascend without issues, reports having to work harder with R stance phase. He had more stiffness with descending, early heel off. Plan Plan: I want to continue to see keiko de la rosa per week for 3 weeks to monitor knee flexion until he follows up with his physician. Work on last few degrees of knee flexion and maintain TKE. Balance/Gait/Functional tests - Balance/Special Test Scores Lower Extremity Functional Score: 42 TUG Test Time Seconds: 19.6 Tug Test: <20 sec.=mostly independent WOMAC Total Score: 32 WOMAC Percentage: 66.6700 Goals Goal 1:: Patient to be I with HEP for Right TKR. Goal Time Frame: 4-6 Weeks Goal Progress: Goal Met Goal 2:: Patient to normalize gait community distance and tug score under 10 Goal Time Frame: 4-6 Weeks Goal Progress: Goal Met Goal 3:: Patient to improve peak force of quads /hams by 10 t improve gait Goal Time Frame: 4-6 Weeks Goal Progress: Goal Met Goal 4:: Patient to improve WOMAC by 10 points Goal Time Frame: 4-6 Weeks Goal Progress: Progressing Goal 5:: NEW GOAL: 05/22/22 LTG: pt. to have 120deg of R knee flexion allowing for ability to negotiate stairs without restrictions. Goal Time Frame: 4-6 Weeks Goal Progress: Progressing Goal 6:: Patient to improve LFES score by 10 points to improve QOL Goal Progress: Progressing Anticipated Interventions Patient/Client Instruction: Educate patient on: Condition, Plan of Care For the Purpose of:: To decrease pain, To increase ROM, To improve muscle performance and motor function, To improve ability to perform ADL's, To increase tolerance to activity/condition/position, To improve performance and independence with ADL's, To improve ability of physical actions for home/community/work/leisure, To improve gait and locomotor functions, To improve health of tissue, To decrease soft tissue restriction, To increase flexibility/ROM, To improve balance, To prevent re-injury Therapeutic Exercise to Include: Strength training, Endurance training, Balance training, Flexibilty training, Gait and locomotor training, Passive ROM, Active ROM Comment: STRENGTHENING QUADS/HAMS For the Purpose of:: To decrease pain, To increase ROM, To improve muscle performance and motor function, To improve ability to perform ADL's, To increase tolerance to activity/condition/position, To improve gait and locomotor functions, To improve health of tissue, To decrease soft tissue restriction, To increase flexibility/ROM, To improve endurance, To improve balance Please do not hesitate to contact me at [phone] by phone or if you have questions or concerns regarding this new plan of care! Sincerely, Gonzalo Smith DPT
--- NOTE | 2022-06-13 11:49 | HP.PTDCSUM ---
It has been my pleasure to treat KEIKO MICHEL referred by Dr. Arthur Marcos MD, with the diagnosis of S/P RIGHT TKR, GAIT ABNORMALITY (03/21/22). for a total of 11 visit(s). Discharge Date: 06/13/22 Please see the following information for a summary of their discharge status. Subjective: Plan to RTW order per Jun 18 ,,c/o Stiffness Right Knee Pain Intensity (Out of 10): 1 % Improvement: 90 Objective/Function: POSTURE: WFL. GAIT: RECIPROCAL PATTERN. AROM: 0-122 SUPINE DEGREES SUPINE KNEE FLEXION. MMT: PEAK FORCE QUADS 38.8 ,HAMS 39.0 Goal 1:: Patient to be I with HEP for Right TKR. Goal Progress: Goal Met Goal 2:: Patient to normalize gait community distance and tug score under 10 Goal Progress: Goal Met Goal 3:: Patient to improve peak force of quads /hams by 10 t improve gait Goal Progress: Goal Met Goal 4:: Patient to improve WOMAC by 10 points Goal Progress: Goal Met Goal 5:: NEW GOAL: 05/22/22 LTG: pt. to have 120deg of R knee flexion allowing for ability to negotiate stairs without restrictions. Goal Progress: Goal Met Goal 6:: Patient to improve LFES score by 10 points to improve QOL Goal Progress: Goal Met Plan: D/C Discharge Comments: HEP If there are questions or concerns regarding this patient's physical therapy, please feel free to call me at [phone]. Thank you for the referral of this patient. Sincerely, Mani Okeefe, PT, Cert MDT, OCS Balance/Gait/Functional tests - Balance/Special Test Scores Lower Extremity Functional Score: 66 TUG Test Time Seconds: 5.9 Tug Test: <10 sec.=free mobile WOMAC Total Score: 7 WOMAC Percentage: 92.7100
== END 2022-06-13 19:00 | disposition home or self-care (01) ==
LOC: PT 11:00
PROVIDERS: PCP Family Medicine; Referring Provider Orthopaedic Surgery; Visit Provider Orthopaedic Surgery
DX: R26.9 Unspecified abnormalities of gait and mobility (principal); Z96.651 Presence of right artificial knee joint
CPT/HCPCS: 97110; 97162; 97164

== ENCOUNTER 2023-06-23 12:30 | Outpatient (RCR) | payer MEDICARE, OTHER, SELFPAY ==
--- NOTE | 2023-05-20 14:49 | ST ---
Patient had a MBSS at [facility] in October 2022. Oral phase: Pt had mild escape to floor of the mouth but able to form bolus. Mild oral residuals with thin, pudding and cracker that required reswallow to clear. Pt noted to take large bolus sizes bites and drinks) Reswallow was effective to clear. Pharyngeal phase: Vallecular residuals after thin ( trace), pudding and cracker ( trace- moderate) consistency that he is able to clear with a second swallow. Decreased sensation of the same, given additional time, he did reswallow. Residual is suggestive of decreased tongue base weakness in combination with inconsistent anterior rocking and decreased epiglottic deflection. Deflection more diminished with thin, however residuals greater with solids ( puree/cracker). Transient ( about 50% ) penetration of thin liquids via continuous cup and straw drinking wiht epiglottic staining. No true vocal cord penetration or aspiration. Suggested single bites and drinks with reswallow to assist with clearing. Compensatory strategies: Upright for all oral intake, Smaller drinks, re swallow throughout meal with slower rate to allow reswallows.
--- NOTE | 2023-05-26 11:51 | HP.SP.EVAL ---
History History Date of Eval: 05/20/23 Attending Doctor: ANA LAURA GUADARRAMA Referring Doctor: ANA LAURA GUADARRAMA Reason for Referral: DYSPHAGIA Medical Diagnosis (from RX): Dysphagia Date of Onset of Diagnosis: 20 years Previous speech therapy: No Other Relevant Medical History/Diagnoses/Surgery: allergies, acid reflux, appendectomy, remote past of bronchitis and pneumonia ( 20+ years ago) Smoking Status: Never smoker Hx Smoking: No Hx Tobacco Use: No Pain Is pain an issue with your current prescribed condition?: No Personal Preferred language: Polish Patient Allergies Allergies Allergies: Allergies No Known Allergies Allergy (Verified 09/10/18 10:13) * Pediatric & Adult patients Subjective Dysphagia Symptoms Reported Symptoms/Problems with: Coughing Current Diet Solids Current Diet: Regular Current Diet Liquids Current Liquids: Thin Objective Dysphagia Administered by Administered by: Self Thin Liquids Administred via: Cup Oral Transit: WNL Bolus clearance: fully cleared Gagging: No Cough: none observed/unable to assess Pharyngeal phase: suspect pharyngeal deficits Patient Report: Patient reported no difficulty with single drinks today. Throat clearing noted prior to any oral intake. Patient reports he has phlegm in his throat often. Swallowing Impairment Contributing Factors to Swallowing Impairment: Reduced Oral Strength/Coordination/Sensation and Reduced Laryngeal Excursion Recommendations Modified Barium Swallow/Cookie Swallow Recommended: Yes Swallowing Treatment: Yes Diet Texture Recommendations Solids: Regular (Level 7) Liquids: Thin (Level 0) Safety Saftey Precautions/Swallowing Recommendations (Check all that Apply): Upright Position at Least 30 Minutes After Meals, Small Sips & Bites when Eating, Multiple Swallows and Alternate Liquids & Solids Results Swallowing Within Normal Limits: No Swallowing Diagnosis: Oropharyngeal Phase Dysphagia (R13.12) Severity: Mild Adult Objective Oral Motor Labial Impairment: WNL Closure: WNL Pucker: WNL Lingual Impairment: WNL Protrusion: WNL Retraction: WNL Jaw Impairment: WNL Respiratory Status Respiratory Status: Room Air Modified Barium Results Hx If Applicable Enter into a NOTE MBS Report Entered: Yes MBS Results (from prior exam): 05/20/23 14:49 Speech Therapy by Carlos Velasco Patient had a MBSS at [facility] in October 2022. Oral phase: Pt had mild escape to floor of the mouth but able to form bolus. Mild oral residuals with thin, pudding and cracker that required reswallow to clear. Pt noted to take large bolus sizes bites and drinks) Reswallow was effective to clear. Pharyngeal phase: Vallecular residuals after thin ( trace), pudding and cracker ( trace- moderate) consistency that he is able to clear with a second swallow. Decreased sensation of the same, given additional time, he did reswallow. Residual is suggestive of decreased tongue base weakness in combination with inconsistent anterior rocking and decreased epiglottic deflection. Deflection more diminished with thin, however residuals greater with solids ( puree/cracker). Transient ( about 50% ) penetration of thin liquids via continuous cup and straw drinking wiht epiglottic staining. No true vocal cord penetration or aspiration. Suggested single bites and drinks with reswallow to assist with clearing. Compensatory strategies: Upright for all oral intake, Smaller drinks, re swallow throughout meal with slower rate to allow reswallows. Initialized on 05/20/23 14:49 - END OF NOTE Swallowing Performance Scale Swallowing Performance Scale Swallowing Performance Scale Result: 3 Mild Reference: Neuro-QoL instrument Radiation Oncology Patient Plan Plan Plan: Dysphagia therapy recommended as the patient exhibits mild oropharyngeal dysphagia. Recommendations Treatment Warranted: Yes Treatment Warranted: Dysphagia Progress Prognosis: Good Frequency Frequency: 1x/Week Duration: 4 Weeks Visits in this POC: 4 Goals that are Established Determination:: Goals will be added/modified as deemed necessary and appropriate. Therapy will be discontinued when results of re-evaluation indicate therapy is no longer needed or lack of progress has been documented. Goal #1-5 Goal #1: The Patient will demonstrate and utilize recommended compensatory swallowing techniques to facilitate improved airway protection and decreased risk for aspiration during PO intake, across 3 out of 3 sessions. Goal #2: The Patient will demonstrate and utilize recommended velopharyngeal and oropharyngeal strengthening exercises to facilitate improved velopharyngeal and oropharyngeal strength and coordination with minimal cueing and prompting provide by the clinician, across 3 to 3 sessions. Education Patient has Indicated that the Following Identified Educational Needs: None The Patient has indicated that they have no educational or learning abilities that may effect their care.: Yes Patient Instruction Patient Education: Diagnosis, Treatment Plan and Goals Person Taught: Patient Response to teaching: Verbalize understanding
--- NOTE | 2023-09-01 17:57 | HP.SP.DC ---
ST Discharge Summary Discharged: Discharge: Miguel Brothers is discharged from [facility] as of 2022. He was treated for 4 sessions after his initial evaluation in May 2023 for dysphagia. Patient?s sessions focused on independent use of compensatory strategies as well as oropharyngeal strengthening exercises. After 4 sessions patient was independent with both goals. He had a repeat MBS on 08/18/23 with Diet: Regular Textures and Thin Liquids Compensatory Strategies: Small Bites, Small Sips, Multiple Swallows (double swallows as needed to clear trace residues), Alternate bites/solids and sips/liquids (1-2 sips after each bite), Sitting upright and Remain sitting upright for 30 minutes after PO intake. He was also referred for a GI Consult (Esophageal retention of pudding with frequent sensation of retention with foods at home. Patient requires liquids to wash all foods.). Currently, skilled speech therapy is no longer warranted and he is discharged. Thank you for allowing me to participate in the care of this patient.
== END 2023-06-23 19:00 | disposition home or self-care (01) ==
LOC: SP 12:30
PROVIDERS: PCP Family Medicine
DX: R13.10 Dysphagia, unspecified (principal)
CPT/HCPCS: 92526; 92610

== ENCOUNTER → 2023-08-18 | Outpatient (CLI) | payer MEDICARE, OTHER, SELFPAY ==
--- NOTE | 2023-08-18 13:01 | SP.MBSS_ITS ---
Modified Barium Swallow Patient Information Study Date: 08/18/23 Study Time: 13:00 Direct Billable Minutes: 77 Total Minutes procedure & reportin Diagnosis: Dysphagia, oropharyngeal phase R13.12 Referring Physician: Breanna Padgett Reason for Referral: Objectively assess swallow function, assess risk for aspiration, and determine recommendations for least restrictive diet textures and compensatory strategies to improve safety of swallow. Medical History: PMH: allergies, acid reflux, appendectomy, remote past of bronchitis and pneumonia ( 20+ years ago). Patient had a MBSS at [facility] in October 2022 with the following results: Oral phase: Pt had mild escape to floor of the mouth but able to form bolus. Mild oral residuals with thin, pudding and cracker that required reswallow to clear. Pt noted to take large bolus sizes bites and drinks) Reswallow was effective to clear. Pharyngeal phase: Vallecular residuals after thin ( trace), pudding and cracker ( trace- moderate) consistency that he is able to clear with a second swallow. Decreased sensation of the same, given additional time, he did reswallow. Residual is suggestive of decreased tongue base weakness in combination with inconsistent anterior rocking and decreased epiglottic deflection. Deflection more diminished with thin, however residuals greater with solids ( puree/cracker). Transient ( about 50% ) penetration of thin liquids via continuous cup and straw drinking wiht epiglottic staining. No true vocal cord penetration or aspiration. Suggested single bites and drinks with reswallow to assist with clearing. Compensatory strategies: Upright for all oral intake, Smaller drinks, re swallow throughout meal with slower rate to allow reswallows. He has attended OP [facility] at and was re-referred for MBSS to assess swallow function and determine appropriateness for further dysphagia therapy. Per patient, he has occasional throat clearing. He uses double swallows as needed. He senses retention of foods often if not utilizing liquids throughout his meals. Current Diet Ordered: Regular textures / Thin liquids Dentition: WNL and Natural Teeth Mental Status: WNL Respiratory Status: Oxygenating on Room Air Penetration-Aspiration Scale Penetration-Aspiration Scale: OBJECTIVE ASSESSMENT OF SWALLOW FUNCTION (QUANTITATIVE ? PER TRIAL): PENETRATION / ASPIRATION SCALE (PAREKH): 1 = does not enter airway 2 = enters airway/above vocal folds/ejected 3 = enters airway/above vocal folds/not ejected 4 = enters airway/contacts vocal folds/ejected 5 = enters airway/contacts vocal folds/not ejected 6 = enters airway/below vocal folds/ejected 7 = enters airway/below vocal folds/not ejected despite effort 8 = enters airway/below vocal folds/no effort VIDEOFLOROSCOPIC SCALE SCORE (PAREKH): Grade I = aspiration of material that has penetrated into the laryngeal vestibule, intact cough reflex Grade II = aspiration < 10 % of the bolus, intact cough reflex Grade III = aspiration of < 10 % of the bolus, reduced cough reflex or aspiration of > 10 % of the bolus, intact cough reflex Grade IV = aspiration of > 10 % of the bolus, reduced cough reflex Penetration-Aspiration Scale Score Thin Liquid via teaspoon: Result: 1= does not enter airway Thin Liquid via teaspoon Trial 2: Result: 1= does not enter airway Thin Liquid via small single sip: cup: Result: 1= does not enter airway Thin Liquid via sequential sips: cup: Result: 2= enter airway/above vocal folds/ejected [place] Thick Liquid via small single sip: cup: Result: 1= does not enter airway Pudding via teaspoon: Result: 1= does not enter airway Comment: Esophageal screen - retention of pudding throughout mid and lower esophagus. Thin Liquid via sequential sips:straw: Result: 1= does not enter airway Comment: Esophageal screen - barium pudding contrast mostly cleared after 2 liquid washes. Thin Liquid via single sip: straw: Result: 1= does not enter airway 1/2 Cookie: Result: 1= does not enter airway Thin liquid via single sip by straw - A-P view: Comment: . Thin liquid via single sip by straw - A-P view Trial 2: Comment: . Oral Phase Labial Seal: No Labial Escape Tongue Control During Bolus Hold: Posterior escape of less than half of bolus Bolus Preparation/Mastication: Timely and efficient chewing and mashing Bolus Transport/Lingual Motion: Delayed initiation of tongue motion Oral Residue: Residue collection on oral structures Pharyngeal Phase Initiation of Pharyngeal Swallow: Bolus head at posterior laryngeal surgace of epiglottis Soft Palate Elevation: No bolus between soft palate and pharyngeal wall Laryngeal Elevation: Comp. Superior move thyroid cart w/comp. apprx arytenoid cart-epig pet Anterior Hyoid Excursion: Partial anterior movement Epiglottic Movement: No inversion (inconsistent) Laryngeal Vestibule Closure at Height of Swallow: Incomplete; narrow column of air/contrast in laryngeal vestibule Pharyngeal Stripping Wave: Present - complete Pharyngoesophageal Segment Opening: Complete distension and complete duration; no obstruction of flow Tongue Base Retraction: Narrow column of contrast between tongue base & post. pharyngeal wall Pharyngeal Residue: Collection of residue within or on pharyngeal structures Esophageal Phase Esophageal Clearance: Esophageal retention w/ retrograde flow below pharyngoesophageal seg. Diagnosis/Impression Diagnosis: Mild oropharyngeal dysphagia R13.12 Impression: The oral phase is primarily marked by... -Decreased bolus control with <1/2 of the bolus spilling posteriorly to the posterior surface of the epiglottis with certain thin liquid trials. -Piecemeal deglutition of pudding and cookie with complete oral clearance with independent use of multiple swallows as needed to clear. The pharyngeal phase is primarily marked by... -Mildly decreased anterior hyoid excursion and inconsistent epiglottic inversion; however, complete laryngeal elevation. Trace laryngeal penetration with full ejection 1X. No aspiration. -Mildly decreased tongue base retraction with resulting trace-mild pharyngeal residue in the vallecula after the swallow. Patient independently used double swallow as needed to clear trace-mild pharyngeal residues. Recommendations Diet: Regular Textures and Thin Liquids Compensatory Strategies: Small Bites, Small Sips, Multiple Swallows (double swallows as needed to clear trace residues), Alternate bites/solids and si ps/liquids (1-2 sips after each bite), Sitting upright and Remain sitting upright for 30 minutes after PO intake Recommend Repeat Modified Barium Swallow: No Need for Skilled Speech Therapy Services: No Comment: This ADMINISTRATIVE LIBRARY ASSISTANT informed OP ADMINISTRATIVE LIBRARY ASSISTANT, Carlos, of results of study and requested she reach out to the patient regarding ST discharge as his ST notes read that he is independent with home exercise program. This ADMINISTRATIVE LIBRARY ASSISTANT recommends continued completion of oropharyngeal exercise program at home for maintenance. Recommended Referrals: GI Consult (Esophageal retention of pudding with frequent sensation of retention with foods at home. Patient requires liquids to wash all foods.) Education Completed: 1. Described result of evaluation. and 5. Patient demonstrates recommended strategies. Status Active ST Patient: Active Contact Information [facility] Speech Therapy:: Nimco Leon M.A. [facility]-ADMINISTRATIVE LIBRARY ASSISTANT Speech-Language Pathologist [facility] [address] [place] [address] [email or web address] [phone]
== END | disposition home or self-care (01) ==
LOC: RAD 12:46
PROVIDERS: PCP Family Medicine
DX: R13.12 Dysphagia, oropharyngeal phase (principal)
CPT/HCPCS: 74230; 92611

== ENCOUNTER 2024-01-16 07:53 | Day surgery (SDC) | payer MEDICARE, SELFPAY ==
[2024-01-16 08:12] VITALS: BP 144/85; PULSE 69; RESP 16; TEMP 36.6; O2SAT 98; BMI 28.3
[2024-01-16] MEDS: Lactated Ringers 1,000 ML 15 ML IV (08:14)
--- NOTE | 2024-01-16 08:40 | HP.PCM_ITS ---
History and Physical Date of Admission: 01/16/24 Visit Reasons: 5 YR COLONOSCOPY SCREENING Chief Complaint: 5 year colonoscopy screening Genetics Nurse Required: No Accompanied by: Sister Allergies No Known Allergies Allergy (Verified 12/08/23 10:03) Medications Psyllium Husk constipation 07/29/18 [History Confirmed 12/08/23] loratadine 10 mg tablet 10 mg PO DAILY allergies 07/29/18 [History Confirmed 12/08/23] cholecalciferol (vitamin D3) 25 mcg (1,000 unit) tablet 2,000 unit PO BID supplement 07/31/18 [History Confirmed 12/08/23] cyanocobalamin (vitamin B-12) 1,000 mcg tablet 1,000 mcg PO DAILY supplement 07/31/18 [History Confirmed 12/08/23] fluticasone propionate 50 mcg/actuation nasal spray,suspension 2 spray NASAL DAILY nasal spray 07/31/18 [History Confirmed 12/08/23] ranitidine HCl 300 mg capsule 300 mg PO BID GERD 07/31/18 [History Confirmed 12/08/23] omega 4-ksp-cvb-fish oil 300 mg-1,000 mg capsule (Fish Oil) 1 cap PO DAILY 12/08/23 [History Confirmed 12/08/23] [facility] Medical History Acute appendicitis Change in bowel habits Chronic gastritis Constipation Surgical History (Updated 12/08/23 @ 10:01 by Ruthie Hager LPN) S/P right knee arthroscopy Status post laparoscopic appendectomy (~07/30/18) Social History (Updated 12/08/23 @ 10:01 by Ruthie Hager LPN) Smoking Status: Never smoker alcohol intake: never substance use type: does not use HPI HPI HPI: 73-year-old gentleman has a recall letter from a previous colonoscopy of November 06, 2018. At that time he was having trouble with chronic constipation. I identified hemorrhoids and a 6 mm polyp in the proximal sigmoid colon which was removed with hot snare. Pathology demonstrated tubular adenoma. Is of additional note that July 29, 2018 I assisted him with a laparoscopic appendectomy for acute ruptured appendicitis and periappendicitis. He has no family history of colon polyps or colon cancer. He occasionally takes fish oil because he thinks it will help his memory. He does have severeConstipation. He has had a couple episodes of impaction. He denies bright red blood per rectum or melena ROS General General: No weight change, appetite, fatigue, colon cancer, breast cancer or weakness HEENT HEENT: Yes difficulty swallowing and eye surgery Endo Endocrine: No thyroid disease, diabetes mellitus, thyroid cancer, Hair loss, heat intolerance or cold intolerance Skin Skin: No rash or changing moles Musc Musculoskeletal: No back problems, arthritis, rheumatoid arthritis, gout or joint pain Cardio Cardiovascular: No murmur, pacemaker, heart disease, atrial fibrillation, high blood pressure, heart attack, heart stent, palpitations, shortness of breat with exertion or chest pain Psych Psychiatric: Yes depression; No anxiety or hearing voices Resp Respiratory: No shortness of breath, No sleep apnea, No cough, No COPD, No asthma, No emphysema and No wheezing Gastro Gastrointestinal: No abdominal pain, No nausea or vomiting, No diarrhea, No co nstipation, No blood in stool, Yes acid reflux, Yes hemorrhoids, No ulcers, No gallbladder problem and No black,tarry stools Farhad Hematologic: Yes blood thinners, No blood disorders, No bleeding, No anemia and No blood clots Additional Details: daily fish oil Neuro Neurologic: No weakness Exam Const General: cooperative, comfortable and no acute distress [facility] Head: normal to inspection Eyes General: appearance normal, both eyes and all related structures Neck Neck: normal visual inspection Chest Chest palpation & inspection: normal inspection of the chest Resp Effort & Inspection: normal respiratory effort Auscultation: clear to auscultation bilaterally Cardio Rate: regular rate Rhythm: regular rhythm GI Palpation: soft and no hepatosplenomegaly Musc Cervical Spine: normal cervical lordosis Skin General: no rashes or lesions noted Neuro General: patient alert and patient awake Extrem Other: 1+ bilateral extremity pitting edema Psych Appearance: grossly normal Assessment and Plan Assessment and Plan (1) Personal history of colonic polyps: Status: Acute Plan: I recommended the patient a colonoscopy with possible biopsy or polypectomy as indicated. He is aware of the technique, benefit, risk, alternatives. I have detected lower extremity swelling. The patient and his sister who accompanies him not aware of the problem or the causative source. With this in mind I recommend that we schedule him for a colonoscopy but that in the meantime he see his primary care physician regarding his lower extremity swelling. He has had an opportunity to ask and have questions answered and we will pursue. Copy: Dr. Lito Gilbert M.D., F.A.C.S I have examined the patient and the H&P has been reviewed. There are no clinical changes since date of exam. Aramis Gilbert M.D., F.A.C.S.
--- NOTE | 2024-01-16 09:00 | COLBX_PTH ---
PATIENT: KEIKO MICHEL LOC: [facility] [place] U#:[id number] AGE/SX: 73/M ROOM: RE01/16/[address]: Dr. Aramis Gilbert MD : 1950 BED: DIS: 01/16/2024 SPEC #: [id number] RECD: 01/16/24 11:09 STATUS: MARY ESPAÑA #: [id number] BLAINE: 01/16/24 09:[address]: Aramis Gilbert DEPT: SURGICAL PATHOLOGY RECD BY: Britany Boyce ENTERED: 01/16/24 12:16 SP TYPE: COLON BX OTHR DR: Dr. Terrance Miranda MD Tissues: COLON BIOPSY Procedures: Surgery Specimen Level IV HEADER OPERATION: Colonoscopy with polypectomy PRE-OP DIAGNOSIS: Personal history of polyps TISSUE SUBMITTED: Colon polyp hepatic flexure hot snare MICROSCOPIC DIAGNOSIS Colon polyp hepatic flexure, polypectomy: Fragments of tubular adenoma. ATA/mr 01/19/24 MICROSCOPIC DESCRIPTION Slides are reviewed. GROSS DESCRIPTION Received in fixative is one container labeled with the patient's name and designated Colon polyp hepatic flexure hot snare. The specimen consists of multiple irregular fragments of light chan soft tissue that in aggregate measure 0.8 x 0.3 x 0.1 cm. The specimen is totally submitted in one cassette. ATA/ 01/16/24 TC:1 CPT:59864
[2024-01-16 10:40] VITALS: BP 108/58; BP 144/85; PULSE 67; RESP 18; TEMP 35.8; O2SAT 98
--- NOTE | 2024-01-16 10:40 | OP.CCLET_ITS ---
01/16/2024 Terrance Miranda Re : Colonoscopy procedure for Miguel Miranda This procedure was performed on Tuesday, January 16, 2024. My impressions and recommendations are as follows: Impressions : - Non-thrombosed external hemorrhoids, non-thrombosed internal hemorrhoids and internal hemorrhoids that prolapse with straining, but spontaneously regress to the resting position (Grade II) found on digital rectal exam. - One 8 mm polyp at the hepatic flexure, removed with a cold biopsy forceps and removed with a hot snare. Resected and retrieved. - Diverticulosis in the sigmoid colon. Recommendations : - Discharge patient to home. - Resume previous diet. - Continue present medications. - Repeat colonoscopy in 5 years for surveillance based on pathology results. - Telephone my office for pathology results in 1 week. My findings are described in the full procedure note, which is enclosed. If I can be of further assistance, please feel free to contact me at Doctor phone number(s): Work: . Sincerely, Aramis Gilbert MD 01/16/2024 10:39:53 AM This report has been signed electronically.
--- NOTE | 2024-01-16 10:40 | OP.COLON_ITS ---
Patient Name: Miguel Brothers Procedure Date: 01/16/2024 10:07 AM Date of : 1950 Age: 73 Procedure: Colonoscopy Indications: High risk colon cancer surveillance: Personal history of colonic polyps Providers: Aramis Gilbert MD Medicines: See the Anesthesia note for documentation of the administered medications Patient Profile: Last Colonoscopy: October 2018. Complications: No immediate complications. Procedure: Pre-Anesthesia Assessment: - Prior to the procedure, a History and Physical was performed, and patient medications and allergies were reviewed. The patient's tolerance of previous anesthesia was also reviewed. The risks and benefits of the procedure and the sedation options and risks were discussed with the patient. All questions were answered, and informed consent was obtained. Prior Anticoagulants: The patient has taken no anticoagulant or antiplatelet agents. ASA Grade Assessment: II - A patient with mild systemic disease. After reviewing the risks and benefits, the patient was deemed in satisfactory condition to undergo the procedure. After I obtained informed consent, the scope was passed under direct vision. Throughout the procedure, the patient's blood pressure, pulse, and oxygen saturations were monitored continuously. The Colonoscope was introduced through the anus and advanced to the cecum, identified by appendiceal orifice and ileocecal valve. The colonoscopy was performed with moderate difficulty due to a tortuous colon. The patient tolerated the procedure well. The quality of the bowel preparation was good. The ileocecal valve and the appendiceal orifice were photographed. Scope In: 10:09:01 AM Scope Withdrawal Time 0 hours 21 minutes 26 seconds Scope Out: 10:35:22 AM Total Procedure Duration Time 0 hours 26 minutes 21 seconds Findings: The digital rectal exam findings include non-thrombosed external hemorrhoids, non-thrombosed internal hemorrhoids and internal hemorrhoids that prolapse with straining, but spontaneously regress to the resting position (Grade II). Pertinent negatives include normal prostate (size, shape, and consistency). An 8 mm polyp was found in the hepatic flexure. The polyp was sessile. The polyp was removed with a cold biopsy forceps. The polyp was removed with a hot snare. Resection and retrieval were complete. Multiple diverticula were found in the sigmoid colon. Impression: - Non-thrombosed external hemorrhoids, non-thrombosed internal hemorrhoids and internal hemorrhoids that prolapse with straining, but spontaneously regress to the resting position (Grade II) found on digital rectal exam. - One 8 mm polyp at the hepatic flexure, removed with a cold biopsy forceps and removed with a hot snare. Resected and retrieved. - Diverticulosis in the sigmoid colon. Recommendation: - Discharge patient to home. - Resume previous diet. - Continue present medications. - Repeat colonoscopy in 5 years for surveillance based on pathology results. - Telephone my office for pathology results in 1 week. Procedure Code(s): --- Professional --- 18703, Colonoscopy, flexible; with removal of tumor(s), polyp(s), or other lesion(s) by snare technique Diagnosis Code(s): --- Professional --- Z86.010, Personal history of colonic polyps K64.1, Second degree hemorrhoids K64.4, Residual hemorrhoidal skin tags D12.3, Benign neoplasm of transverse colon (hepatic flexure or splenic flexure) K57.30, Diverticulosis of large intestine without perforation or abscess without bleeding CPT copyright 2021 [employer]. All rights reserved. The codes documented in this report are preliminary and upon claim approver review may be revised to meet current compliance requirements. Aramis Gilbert MD 01/16/2024 10:39:53 AM This report has been signed electronically. Number of Addenda: 0 Note Initiated On: 01/16/2024 10:07 AM
[2024-01-16 10:45] VITALS: BP 112/64; BP 144/85; PULSE 65; RESP 18; O2SAT 100
[2024-01-16 10:50] VITALS: BP 130/59; BP 144/85; PULSE 66; RESP 14; O2SAT 100
[2024-01-16 10:54] VITALS: BP 132/72; BP 144/85; PULSE 68; RESP 18; TEMP 36.2; O2SAT 100
[2024-01-16 11:10] VITALS: BP 144/85
== END 2024-01-16 11:52 | disposition home or self-care (01) ==
LOC: SDC 07:54 → AC 07:55
PROVIDERS: PCP Family Medicine; Referring Provider Surgery; Visit Provider Surgery
PROC: 0DJD8ZZ Inspection of Lower Intestinal Tract, Via Natural or Artificial Opening Endoscopic (ICD-10-PCS; CPT 45378; principal; 2024-01-16 08:55)
DX: Z12.11 Encounter for screening for malignant neoplasm of colon (principal); K64.4 Residual hemorrhoidal skin tags; K64.1 Second degree hemorrhoids; K57.30 Diverticulosis of large intestine without perforation or abscess without bleeding; K21.9 Gastro-esophageal reflux disease without esophagitis; D12.3 Benign neoplasm of transverse colon; Z86.010 Personal history of colon polyps; Z79.899 Other long term (current) drug therapy
CPT/HCPCS: 45385; 88305; J7120; A4216; J2405

== ENCOUNTER 2024-10-21 16:55 | Emergency (ER) | payer MEDICARE, SELFPAY ==
[2024-10-21 16:55] VITALS: BP 120/101; PULSE 76; RESP 18; TEMP 36.6; O2SAT 98; BMI 30.2
[2024-10-21 16:59] VITALS: BP 120/101; PULSE 76; RESP 18; TEMP 36.6; O2SAT 98
--- NOTE | 2024-10-21 17:16 | EDS_ITS ---
HPI HPI - GI History of Present Illness Chief Complaint: Nausea/Vomiting Informant: patient Abdominal Pain/Flank Pain Onset: Yesterday Context: Gradual Onset Timing: Continuous Quality: Cramping Location: RLQ and LLQ Worsened by: Nothing Relieved by: Nothing Nausea/Vomiting/Emesis GI Symptom: Positive for Nausea and Vomiting Onset: Yesterday Quality: Positive for Nonbilious; Negative for Blood streaks, Coffee ground or Hematemesis Episodes: 2 Diarrhea/Melena/Hematochezia GI Symptom: Negative for Diarrhea, Melena or Hematochezia Associated Symptoms Associated Symptoms: Negative for Dysuria, Frequency or Hematuria Narrative Narrative: Patient presents with abdominal pain, nausea, and vomiting that began last night. Patient states it is gradually gotten worse. Patient states that his pain is mainly over the lower abdomen but worse on the right. Patient describes the pain as cramping. Patient states the pain is constant. Patient admits to some nausea and vomiting. Patient states he vomited twice. Patient denies any hematemesis or coffee-ground emesis. Patient denies any diarrhea, melena, or hematochezia. Patient denies any urinary complaints. Patient admits to subjective fever. [facility] Medical History (Updated 10/21/24 @ 22:[address] Cody Brito, DO) Wears glasses Alcohol use Arthritis Difficulty swallowing Difficulty chewing Gastric reflux Non-smoker Hoarseness Leg cramps History of edema Hypertension History of stress test History of echocardiogram Change in bowel habits Constipation Chronic gastritis Acute appendicitis Home Medications ?Medication ?Instructions ?Recorded ?Last Taken ?Type Psyllium Husk 1 dose PO PRN constipation 07/29/18 Unknown History cholecalciferol (vitamin D3) 25 2,000 unit PO BID supplement 07/31/18 Unknown History mcg (1,000 unit) tablet cyanocobalamin (vitamin B-12) 1,000 mcg PO DAILY supplement 07/31/18 Unknown H istory 1,000 mcg tablet fluticasone propionate 50 2 spray NASAL DAILY nasal spray 07/31/18 Unknown History mcg/actuation nasal spray,suspension omega 3-mas-swo-fish oil 300 1 cap PO DAILY 12/08/23 12/17/23 History mg-1,000 mg capsule (Fish Oil) pantoprazole 40 mg tablet,delayed 40 mg PO DAILY 01/14/24 01/16/24 History release Allergy/AdvReac Type Severity Reaction Status Date / Time clams Allergy Severe Anaphylaxis Verified 10/21/24 16:55 Surgical History (Updated 10/21/24 @ 18:[address] Cody Brito DO) Hx of total knee replacement Hx of colonoscopy History of esophagogastroduodenoscopy (EGD) Hx of tonsillectomy S/P right knee arthroscopy Status post laparoscopic appendectomy (~07/30/18) Social History Smoking Status: Never smoker alcohol intake: never substance use type: does not use ROS ROS ED Constitutional Constitutional ED: Reports fever(s) and subjective; Denies chills Eyes Eyes: Denies blurry vision or change in vision ENT ENT ED: Reports rhinorrhea; Denies sore throat Cardiovascular Cardiovascular: Denies chest pain or palpitations Respiratory/Chest Respiratory/Chest: Reports cough; Denies dyspnea Gastrointestinal Gastrointestinal: Reports abdominal pain, constipation, nausea and vomiting; Denies diarrhea or melena Genitourinary Genitourinary ED: Denies dysuria or hematuria Musculoskeletal Musculoskeletal: Denies back pain or neck pain Integumentary Denies abscess or rash Neurologic Neurologic: Denies headache(s) or weakness Allergic/Immunologic Allergic/Immunologic ED: Denies mouth swelling or urticaria EXAM Physical Exam Const Vital Signs: 10/21/24 16:55 10/21/24 16:59 10/21/24 18:00 Temperature 97.8 F 97.8 F 98.8 F Temperature Source Oral Temporal Oral Pulse Rate 76 76 81 Respiratory Rate 18 18 15 Blood Pressure 120/101 H 120/101 H 120/71 Blood Pressure Mean 107 107 87 Pulse Ox 98 98 94 Oxygen Delivery Method Room Air Room Air 10/21/24 18:59 10/21/24 21:13 Temperature 98.2 F Temperature Source Temporal Pulse Rate 71 69 Respiratory Rate 15 15 Blood Pressure 112/58 L 123/62 H Blood Pressure Mean 76 82 Pulse Ox 93 96 Oxygen Delivery Method Room Air Room Air Positive well nourished and well developed General Appearance ED: well developed and NAD HEENT Reports moist mucous membranes Neck supple and no JVD Resp normal respiratory effort and clear to auscultation bilaterally Cardio regular rate and regular rhythm GI non-distended Palpation: soft and tender LLQ, RLQ, periumbilical and suprapubic; Negative for guarding or rebound tenderness present Extremity full ROM Extremity Narrative: There is trace edema of the lower extremities bilaterally. There is no calf tenderness. General Extremety ED: Yes edema; Negative for tenderness General Extremity: edema Neuro CN's II-XII intact bilaterally, moves all extremities and no sensory deficits noted Sensorium / Orientation: alert Motor Exam: strength 5/5 throughout Psych mental status grossly normal and thought process normal MDM MDM MDM Narrative Medical decision making narrative: Differential diagnosis includes diverticulitis, colitis, gastroenteritis, bowel obstruction, perforation, pyelonephritis, and urinary tract infection. CBC will be obtained to assess for leukocytosis and anemia. Comprehensive metabolic profile will be obtained to assess for hepatic function, renal function, and electrolyte abnormality. Urinalysis will be obtained to assess for urinary tract infection and hematuria. Lab Data Attestation: I reviewed the patient's lab results. Lab results narrative: CBC was reviewed and was within normal limits. Comprehensive metabolic profile was reviewed. BUN was slightly elevated at 23. The remainder is within normal limits. Urinalysis was reviewed. There is no evidence of urinary tract infection or hematuria. Labs: Laboratory Results - last 24 hr 10/21/24 10/21/24 18:05 19:17 WBC 8.3 RBC 4.98 Hgb 15.4 Hct 44.3 MCV 89.0 MCH 30.9 MCHC 34.8 RDW Std Deviation 38.5 RDW Coeff of [place] 11.9 Plt Count 156 MPV 9.9 Immature Gran % (Auto) 0.200 Neut % (Auto) 78.7 H Lymph % (Auto) 11.7 L [place] % (Auto) 8.8 Eos % (Auto) 0.4 Baso % (Auto) 0.2 Absolute Neuts (auto) 6.6 Absolute Lymphs (auto) 0.97 Nucleated RBC % 0 Sodium 138 Potassium 3.5 Chloride 105 Carbon Dioxide 28.0 Anion Gap 5 BUN 23 H Creatinine 0.95 Estim Creat Clear Calc 75.54 Est GFR (MDRD) Af Amer 100 Est GFR (MDRD) Non-Af 82 BUN/Creatinine Ratio 24.3 H Glucose 103 Calcium 7.9 L Total Bilirubin 0.90 AST 13 L ALT 21 Alkaline Phosphatase 104 Total Protein 6.3 L Albumin 3.3 Globulin 3.0 Albumin/Globulin Ratio 1.1 Urine Color Yellow Urine Clarity Clear Urine pH 6.0 Ur Specific [place] 1.015 Urine Protein 30 H Urine Glucose (UA) Normal Urine Ketones Negative Urine Occult Blood Negative Urine Nitrite Negative Urine Bilirubin Negative Urine Urobilinogen 1 H Ur Leukocyte Esterase 25 H Urine RBC 0 SEEN Urine WBC 0-5 SEEN Ur Squamous Epith Cells 0 SEEN Urine Bacteria 0 SEEN Urine Mucus 0 SEEN Radiography Diagnostic Testing: Clinical Impression(s) from Imaging Studies Abdomen/Pelvis CT 10/21/24 17:57 IMPRESSION: No acute abnormalities in the abdomen or pelvis. Diverticulosis. Mild prostatomegaly. Correlate with PSA levels. Electronically Signed: Lito Sparks MD at 20:06 EST , CT scan of the abdomen and pelvis was obtained. There is no acute abnormality. There is diverticulosis but no evidence of diverticulitis. There is no free air or free fluid. This was interpreted by the radiologist and was also independently reviewed by myself. Treatment and Re-Evaluation :: Patient was given IV fluids. Patient was given a soapsuds enema. Patient had good relief with this. Patient felt better on reevaluation. Patient was instructed to follow-up with his primary care physician in 5 to 7 days. Patient understood and was agreeable with the plan. All questions were answered. Discharge Plan Triage Chief Complaint: Nausea/Vomiting Other Complaint: Fever ED Provider: Cody Brito Dx/Rx/DC Orders Clinical Impression: Abdominal pain, Constipation Instructions: ED Constipation (Adult) Prescriptions: No Action omega 5-cmc-qus-fish oil [Fish Oil] 300-1,000 mg capsule 1 cap PO DAILY Psyllium Husk 1 dose PO PRN cyanocobalamin (vitamin B-12) 1,000 MCG tablet 1,000 mcg PO DAILY fluticasone propionate 1 SPRAY spray,suspension 2 spray NASAL DAILY cholecalciferol (vitamin D3) 1,000 UNIT tablet 2,000 unit PO BID pantoprazole 40 mg tablet,delayed release (DR/EC) 40 mg PO DAILY Primary Care Provider: Terrance Miranda Referrals: Terrance Miranda MD [Primary Care Provider] - 5-7 Days Print Language: Macanese Disposition Disposition: Home, Self Care
--- NOTE | 2024-10-21 17:57 | CT_ITS ---
INDICATION: Abdominal pain EXAMINATION: CT Abdomen And Pelvis W/ Contrast Injection TECHNIQUE: Helically acquired images were obtained of the abdomen and pelvis after IV contrast. A radiation dose optimization technique was used for this scan. IV Contrast dosage and agent: IV 100mL [id number] Oral contrast: None. COMPARISON: None. FINDINGS: Visualized lung bases: Unremarkable Liver: Unremarkable Gallbladder: Unremarkable Spleen: Unremarkable Pancreas: Unremarkable Adrenal Glands: Unremarkable Kidneys: Unremarkable Vasculature: Moderate aortoiliac atherosclerotic disease. GI Tract: Scattered diverticula throughout the colon without evidence of inflammation. Lymphadenopathy: None Peritoneum: No ascites. Bladder: Unremarkable Reproductive organs: The prostate is mildly enlarged. Bones/Soft tissues: Mild scattered degenerative changes of the visualized spine. CT/Abdomen/Pelvis W IV Cont ONLY IMPRESSION: No acute abnormalities in the abdomen or pelvis. Diverticulosis. Mild prostatomegaly. Correlate with PSA levels. Electronically Signed: Lito Sparks MD at 20:06 EST ,
[2024-10-21 18:00] VITALS: BP 120/71; PULSE 81; RESP 15; TEMP 37.1; O2SAT 94
[2024-10-21 18:16] LABS: Absolute Lymphocyte Count 0.97 X10^3/uL (0.83-4.51); Absolute Neutrophil Count 6.6 X10^3/uL (2.0-7.7); Basophil# 0.02 X10^3/uL; Basophil% 0.2 % (0-1); Eosinophil# 0.03 X10^3/uL; Eosinophils% 0.4 % (0-5); Hematocrit 44.3 % (40-54); Hemoglobin 15.4 g/dL (13.0-16.5); Lymphocyte # 0.97 X10^3/ul (0.83-4.51); Lymphocyte % 11.7 % (19-41); Mean Corp Hgb Conc 34.8 g/dL (32-36); Mean Corpuscular Hgb 30.9 pg (27.0-32.0); Mean Platelet Vol. 9.9 fl (6.2-12.0); Monocyte# 0.73 X10^3/uL; Monocyte% 8.8 % (0-10); NRBC Flagged by Analyzer 0 % (0-5); Neutrophil # 6.55 X10^3/uL (2.7-7.7); Neutrophil % 78.7 % (47-70); Platelet Count 156 K/mm3 (150-450); RBC Distribution Width CV 11.9 % (11.6-14.6); RBC Distribution Width SD 38.5 fl (35.1-43.9); Red Blood Count 4.98 M/mm3 (4.6-6.2); White Blood Count 8.3 K/mm3 (4.4-11.0)
[2024-10-21] MEDS: 0.9% Normal Saline (1000mL) 1,000 ML 1000 ML IV (18:32)
[2024-10-21 18:34] LABS: ALB/GLOB Ratio 1.1 RATIO (0.9-2.4); AST(SGOT) 13 U/L (15-37); Alanine Aminotransfer ALT/SGPT 21 U/L (16-61); Albumin, Serum 3.3 g/dL (3.2-5.0); Alkaline Phosphatase 104 U/L (45-117); Anion Gap 5 (5-15); BUN 23 mg/dL (7-18); BUN/Creat Ratio 24.3 RATIO (10-20); Calcium,Total 7.9 mg/dL (8.5-10.1); Chloride 105 mmol/L (98-107); Creatinine, Serum 0.95 mg/dL (0.70-1.30); EST Glomerular Filtration Rate 82 mL/min (>60); Est Glom Filt Rate - Afr Amer 100 mL/min (>60); Estimated Creatinine Clearance 75.54 ml/min; Glucose 103 mg/dL (74-106); Potassium 3.5 mmol/L (3.5-5.1); Protein, Total 6.3 g/dL (6.4-8.2); Sodium Level 138 mmol/L (136-145)
[2024-10-21 18:59] VITALS: BP 112/58; PULSE 71; RESP 15; TEMP 36.8; O2SAT 93
[2024-10-21 19:23] LABS: Bacteria 0 SEEN /hpf (None Seen); Mucous, Urine 0 SEEN /hpf (<or=2+); Red Blood Cells-Urine 0 SEEN /hpf (0-5); Squamous Epithelial Cells - UA 0 SEEN /hpf (0-5)
[2024-10-21 19:24] LABS: Color, Urine Yellow (Yellow); Glucose, Dipstick Normal (Normal); Ketone-Dipstick Negative (Negative); Leukocyte Esterase-Dipstick 25 /ul (Negative); Nitrite-Dipstick Negative (Negative); Occult Blood-Urine Negative /ul (Negative); Protein-Dipstick 30 mg/dl (Negative); Specific Gravity, Urine 1.015 (1.002-1.030); Urine Bilirubin Dipstick Negative (Negative); Urine Clarity Clear (Clear); Urine Urobilinogen 1 mg/dl (Normal)
[2024-10-21 19:36] LABS: White Blood Cells 0-5 SEEN /hpf (0-5)
[2024-10-21 21:13] VITALS: BP 123/62; PULSE 69; RESP 15; O2SAT 96
[2024-10-21 22:28] VITALS: BP 124/70; PULSE 78; RESP 14; TEMP 36.6; O2SAT 97
== END 2024-10-21 22:28 | disposition home or self-care (01) ==
PROVIDERS: Emergency Provider Emergency Medicine; PCP Family Medicine; Visit Provider Emergency Medicine
DX: R10.9 Unspecified abdominal pain (principal); K59.00 Constipation, unspecified
CPT/HCPCS: 74177; 80053; 81001; 85025; 96360; 96361; 99285; Q9967; A4216

== ENCOUNTER → 2025-04-27 | Outpatient (CLI) | payer MEDICARE, SELFPAY ==
[2025-04-27 16:44] LABS: AST(SGOT) 22 U/L (<=37); Alanine Aminotransfer ALT/SGPT 19 U/L (<=46); Albumin, Serum 4.1 g/dL (3.4-4.8); Alkaline Phosphatase 122 U/L (40-129); Bilirubin, Direct 0.25 mg/dL (0.00-0.30); Globulin 2.5 g/dL (2.2-4.2)
== END | disposition home or self-care (01) ==
PROVIDERS: PCP Family Medicine; Referring Provider Student in an Organized Health Care Education/Training Program; Visit Provider Student in an Organized Health Care Education/Training Program
DX: B35.1 Tinea unguium (principal)
CPT/HCPCS: 36415; 80076